=== PATIENT | male | born 1990 | race Caucasian/White ===

== ENCOUNTER 2018-01-19 10:54 | Emergency (ER) | payer OTHER ==
[~2018-01-19] VITALS: Ht 182.9 cm; Wt 123.0 kg
[~2018-01-19 10:54] MED LIST: BACTRIM DS1 TAB PO; MEDDOSEPAK PO; NAPROSYN500 MG PO; NO; NO HOME MEDS; TORADOL OR; ZPAK PO
[2018-01-19 11:50] LABS: HEMATOCRIT 48.6 % (39.0-50.0); HEMOGLOBIN 16.5 g/dl (14.0-18.0); IMMATURE GRANULOCYTES 0.3 % (0.0-5.0); MEAN CORPUSCULAR HGB 30.2 pG CALC (26.0-32.0); NEUT# 4.02 thou/uL (1.82-7.42); RED BLOOD COUNT 5.47 mill/uL (4.70-6.10); RED CELL DISTRI WIDTH 12.6 % (11.5-15.5)
[2018-01-19 11:51] LABS: MEAN CELL VOLUME 88.8 fL CALC (80.0-100.0)
[2018-01-19 11:59] LABS: ANION GAP 11 (6-22 (CALC)); BUN 12 mg/dL (9-20); BUN/CREATININE RATIO 13 (12-20 (CALC)); CARBON DIOXIDE 33 mmol/l (22-30); CHLORIDE 103 mmol/l (95-108); CREATININE 0.9 mg/dL (0.7-1.3); GFR > 60 ML/MIN (>=60 (CALC)); GFR FOR AFR.AMER. > 60 ML/MIN (>=60 (CALC)); POTASSIUM 4.2 mmol/l (3.5-5.1); SODIUM 142 mmol/l (137-146)
[2018-01-19] MEDS ORDERED: BACTRIM DS1 TAB PO (13:53)
[2018-01-19] MEDS ORDERED: AUGMENTIN875TAB PO (13:53)
[2018-01-19 14:04] VITALS: BP 126/77
== END 2018-01-19 14:10 | DRG 159 ==
LOC: ED 10:54
PROVIDERS: Family Medicine
DX: K02.9 Dental caries, unspecified (principal); J34.89 Other specified disorders of nose and nasal sinuses; F17.210 Nicotine dependence, cigarettes, uncomplicated
CPT/HCPCS: Q9967

== ENCOUNTER 2018-10-08 17:22 | Emergency (ER) | payer SELFPAY ==
[~2018-10-08] VITALS: Ht 182.9 cm; Wt 122.0 kg
[~2018-10-08 17:22] MED LIST changes: +AUGMENTIN875TAB PO
[2018-10-08] MEDS ORDERED: PREDNISONE20 MG PO (18:54)
[2018-10-08] MEDS ORDERED: KEFLEX500 M1 PO (18:54)
[2018-10-08] MEDS ORDERED: ELIMITE52 TOP (18:54)
[2018-10-08 19:10] VITALS: BP 133/99
== END 2018-10-08 19:10 | disposition home or self-care (01) | DRG 607 ==
LOC: ED 17:22
DX: B86 Scabies (principal); R21 Rash and other nonspecific skin eruption; F17.210 Nicotine dependence, cigarettes, uncomplicated

== ENCOUNTER 2022-05-14 14:20 | Inpatient (IN) | payer SELFPAY ==
[2022-05-14] VITALS (24 sets, daily range): BP systolic 98–127; BP diastolic 61–91
[~2022-05-14] VITALS: Ht 182.9 cm; Wt 77.0 kg
[~2022-05-14 14:20] MED LIST changes: +ELIMITE52 TOP; +KEFLEX500 M1 PO; +PREDNISONE20 MG PO
--- NOTE | 2022-05-14 14:30 | NUR ---
PATIENT TO ROOM 12 VIA EMS
[2022-05-14 15:18] LABS: BASO% 0.4 % (0-3); EOS% 0.9 % (0-8); IMMATURE GRANULOCYTES 0.5 % (0.0-5.0); LYMPH% 7.4 % (15-41); MEAN CELL VOLUME 88.2 fL CALC (80.0-100.0); MEAN CORPUSCULAR HGB 30.3 pG CALC (26.0-32.0); MEAN CORPUSCULAR HGB CONC 34.4 g/dL CAL (32.0-36.0); MONO% 4.3 % (2-13); NEUT# 8.02 thou/uL (1.82-7.42); NEUT% 86.5 % (42-76); RED BLOOD COUNT 4.68 mill/uL (4.70-6.10)
[2022-05-14 15:19] LABS: HEMATOCRIT 41.3 % (39.0-50.0); HEMOGLOBIN 14.2 g/dl (14.0-18.0)
--- NOTE | 2022-05-14 15:20 | NUR ---
Pt tolerated procedures well.
--- NOTE | 2022-05-14 15:30 | NUR ---
PATIENT REMAINS INTUBATED, NO S/Sx OF ACUTE DISTRESS
[2022-05-14 15:35] LABS: INTERNATIONAL NORMALIZED RATIO 1.1 RATIO (0.7-1.3); PROTHROMBIN TIME 11.1 SECONDS (9.0-12.5)
[2022-05-14 15:39] LABS: ALBUMIN 3.7 g/dL (3.2-5.0); ALKALINE PHOSPHATASE 81 u/l (38-126); ANION GAP 11 (6-22 (CALC)); BILIRUBIN, TOTAL 0.8 mg/dL (0.0-1.4); BUN 17 mg/dL (9-20); BUN/CREATININE RATIO 17 (12-20 (CALC)); CARBON DIOXIDE 28 mmol/l (22-30); CHLORIDE 104 mmol/l (95-108); CPK 95 u/l (52-200); ETHYL ALCOHOL 0 mg/dl (0-30); GFR FOR AFR.AMER. > 60 ML/MIN (>=60 (CALC)); GFR OTHER RACES > 60 ML/MIN (>=60 (CALC)); LIPASE 120 u/l (23-300); MAGNESIUM 1.7 mg/dL (1.6-2.3); POTASSIUM 4.3 mmol/l (3.5-5.1); SGOT/AST 169 u/l (17-59); SODIUM 138 mmol/l (137-146)
[2022-05-14 16:15] LABS: URINE BILIRUBIN - DIPSTICK NEGATIVE (NEGATIVE); URINE BLOOD DIPSTICK NEGATIVE (NEGATIVE); URINE COLOR YELLOW; URINE GLUCOSE - DIPSTICK NEGATIVE (NEGATIVE); URINE KETONE NEGATIVE (NEGATIVE); URINE LEUK ESTERASE NEGATIVE (NEGATIVE); URINE PROTEIN - DIPSTICK 100 mg/dL (NEG-TRACE); URINE SPECIFIC GRAVITY >=1.030
[2022-05-14 16:16] LABS: URINE NITRITE - DIPSTICK NEGATIVE (Negative)
[2022-05-14 16:21] LABS: URINE RBC 0-2 RBC/hpf (0-5)
--- NOTE | 2022-05-14 16:33 | NUR ---
Reassessment of patient completed. No distress noted.
--- NOTE | 2022-05-14 17:42 | NUR ---
Transfer Information Transferred To: ICU BED 8, BEBE CORREA Report Given to: Transported by: [facility] [employer] Other Transported with: Nurse Transporter [id number]
--- NOTE | 2022-05-14 17:45 | NUR ---
PATIENT TO ICU BED 8
--- NOTE | 2022-05-14 18:06 | NUR ---
Pt arrived to unit at 1805 via stretcher, on a vent - vent settings are AC 22, TV 500, RR 22, 50%FI02 and 5 PEEP - pt currently on 25mcg Propofol - sedated and stable at this time - satting 100% - no s/s distress - will monitor
--- NOTE | 2022-05-14 20:00 | NUR ---
REPORT RECIEVED FROM ARTUR RN, DURING REPORT.. PATIENT SAT UP WITH ET TUBE IN PLACE AND PULLED ONE OF HIS WRIST RESTRAINTS OFF AND GRABBED HIS TUBE, ARTUR RN GRABBED THE TUBE AT THE SAME TIME AND ET TUBE WAS STILL AT 23 AT THE LIP WAS GIVEN IN REPORT. INCREASED PROPOFOL GTT AND PATIENT SETTLED BACK DOWN. VSS. NAD. WILL CONT. TO MONITOR.
[2022-05-15] VITALS (51 sets, daily range): BP systolic 106–138; BP diastolic 66–91
--- NOTE | 2022-05-15 04:58 | NUR ---
PATIENT IS AOX4 AND READY TO BE EXTUBATED. IN BILATERAL WRIST RESTRAINTS AT THIS TIME, TOLD HIM HE WILL BE EXTUBATED TODAY, UO DECREASED OF 0300, BUT PT HAS NO FLUIDS RUNNING AT THIS TIME. HE HAS PUT OUT A TOTAL OF 1000ML OUT OG SINCE ADMISSION TO THE UNIT. WAS DARK BROWN OUTPUT NOW IS YELLOW GASTRIC FLUID. PT NAD, VSS. WILL CONT. TO MONITOR.
--- NOTE | 2022-05-15 06:45 | NUR ---
BEDSIDE REPORT RECEIVED FROM NIGHT NURSE; PT RESTING IN BED ON VENTILATOR; LIGHTLY SEDATED. AWAKE AND ABLE TO ANSWER YES/NO QUESTIONS. 7.5 ET TUBE 23 AT LIP; VENT SETTINGS TV 500 RR22 30%FIO2 5PEEP. OG TUBE CONNECTED TO LIS. PROPOFOL GTT INFUSING AT 40 MCG/KG/HR; RIGHTIJ CENTRAL CATHETER APPEARS HEALTHY. BRAN CATHETER DRAINING GREEN URINE WITH SEDIMENT TO GRAVITY. BILATERAL WRIST RESTRAINTS IN PLACE; GOOD CSM TO HANDS. SAFETY MEASURES IN PLACE; NEEDS ARE ANTICIPATED BY STAFF.
--- NOTE | 2022-05-15 08:30 | NUR ---
PT ASKED FOR PEN AND PAPER TO ASK QUESTIONS; RIGHT WRIST RESTRAINT RELEASED AND PT COOPERATIVE; PT ASKING WHAT IS HE HERE FOR, AM I GETTING RELEASED TODAY, CAN HE LEAVE AFTER THE TUBE IS REMOVED. ALSO STATES, "I DIDN'T DO NOTHING. I SLEPT IN MY SHED AND A LOT OF PEOPLE JUST SHOWED UP." INFORMED THAT THE DOCTOR WILL BE IN TO EVALUATE HIM AND DISUCSS PLAN OF CARE. PT GAVE ME A THUMBS UP SIGN AND BLEW A KISS. REAPPLIED RESTRAINT.
--- NOTE | 2022-05-15 09:45 | NUR ---
PT MORE ANXIOUS AND RESTLESS; PULLING ON RESTRAINTS. PROPOFOL TITRATED UP TO 50 MCG/KG/HR.
--- NOTE | 2022-05-15 10:05 | NUR ---
PROPOFOL TITRATED TO 60 MCG/KG/HR DUE TO PT REMAINING ANXIOUS AND IN DISTRESS; EFFECTIVE.
--- NOTE | 2022-05-15 10:27 | NUR ---
HAKEEM KHAN, UPDATED ON PHONE.
--- NOTE | 2022-05-15 10:43 | NUR ---
TELEPHONE ORDER FROM DR. AGUILAR TO TRAVIS PT AT THIS TIME. BEGINNING TITRATION OFF OF PROPOFOL.
--- NOTE | 2022-05-15 11:08 | NUR ---
PT EXTUBATED AND OG TUBE REMOVED. WRIST RESTRAINTS REMOVED. PT AWAKE, ALERT AND ORIENTED. REQUESTING WATER.
--- NOTE | 2022-05-15 11:09 | NUR ---
PT EXTUBATED TO RA. O2 SAT 96%. PT WANTS TO LEAVE NOW. RN INFORMED.
--- NOTE | 2022-05-15 11:15 | NUR ---
PT REPORTS THAT HE IS LEAVING AMA; AWARE OF RISKS. MD NOTIFIED. CENTRAL CATHETER REMOVED, BRAN REMOVED, AND DISCONNECTED FROM ATTACHMENTS; TOLERATED WELL. PT DRESSED INDEPENDENTLY AND REQUESTED TO WALK TO A NEARBY FRIENDS HOUSE.
--- NOTE | 2022-05-15 11:30 | NUR ---
PT SIGNED AMA PAPERWORK AND WAS EXCORTED BY NURSING TO HOSPITAL EXIT; PT WAS AMBULATORY IN STABLE CONDITIONS. ALL BELONGINGS SENT WITH PT. PT DECLINED HOSPITAL ADMISSION PACKET.
== END 2022-05-15 11:30 | disposition left against medical advice (07) | DRG 917 ==
LOC: ED 14:20 → ED-I 15:35 → ED 16:45 → ICU 16:46
PROVIDERS: Family Medicine; ADMIT Internal Medicine; ATTEND Internal Medicine
PROC: 0BH17EZ Insertion of Endotracheal Airway into Trachea, Via Natural or Artificial Opening (ICD-10-PCS; principal; 2022-05-14)
PROC: 5A1935Z Respiratory Ventilation, Less than 24 Consecutive Hours (ICD-10-PCS; 2022-05-14)
PROC: 0T9B70Z Drainage of Bladder with Drainage Device, Via Natural or Artificial Opening (ICD-10-PCS; 2022-05-14)
PROC: 02HV33Z Insertion of Infusion Device into Superior Vena Cava, Percutaneous Approach (ICD-10-PCS; 2022-05-14)
DX: T50.901A Poisoning by unspecified drugs, medicaments and biological substances, accidental (unintentional), initial encounter (principal); J96.00 Acute respiratory failure, unspecified whether with hypoxia or hypercapnia; F17.200 Nicotine dependence, unspecified, uncomplicated; Z20.822 Contact with and (suspected) exposure to COVID-19